=== PATIENT | female | born 1950 | race Caucasian/White ===

== ENCOUNTER → 2017-12-25 | Outpatient (CLI) | payer MEDICARE ==
[~2017-12-25] MED LIST: CIPR-225 PO; HYDR-3812 PO; HYDR-3875 PO; IBUP-2055 PO; INSU100I10 SQ; LISI-552 PO; METF750T2 PO; NITR-65 PO; ONDA8TAB9 SL; SIMV20TA3 PO; TAMS0.4C98 PO
--- NOTE | 2017-12-25 15:35 | Diagnostic Imaging Report ---
INDICATION: Nephrolithiasis EXAM: KUB 3:43 PM FINDINGS: The gallbladder is surgically absent. The bowel gas pattern is normal. There are no radiopaque calculi seen. IMPRESSION: No calculi seen in the kidney or ureter distribution. Dictated by: Dictated on workstation # [id number]
== END ==
LOC: RAD 15:17
PROVIDERS: ATTEND Urology
DX: Z04.9 Encounter for examination and observation for unspecified reason (principal); Z90.49 Acquired absence of other specified parts of digestive tract
CPT/HCPCS: 74018

== ENCOUNTER 2022-03-25 05:27 | Outpatient (CLI) | payer MEDICARE ==
[~2022-03-25] VITALS: Ht 154.9 cm; Wt 61.8 kg
[~2022-03-25 05:27] MED LIST changes: +ACHD5005 PO; -HYDR-3812 PO; -IBUP-2055 PO; +IBUP-2473 PO; -LISI-552 PO; +LISI20TA26 PO; -METF750T2 PO; +METF750T45 PO; +SIMV20TA26 PO; -SIMV20TA3 PO; -TAMS0.4C98 PO; +TMSL.4C PO
[2022-03-28] MEDS ORDERED: estrogen cream (09:53)
[2022-03-28] MEDS ORDERED: DAPA1TAB5 PO (09:53)
[2022-03-28] MEDS ORDERED: [UNRECOGNIZED DRUG - OTHER] (09:53)
[2022-03-28] MEDS ORDERED: INSU100I34 SQ (09:53)
[2022-03-28] MEDS ORDERED: ASPI-999 PO (09:53)
[2022-03-28] MEDS ORDERED: SEMA0.25 SQ (09:53)
[2022-03-28] MEDS ORDERED: OMEP40CA6 PO (09:53)
== END 2022-03-28 10:31 | disposition home or self-care (01) ==
LOC: PREOP 05:27
PROVIDERS: ATTEND Obstetrics & Gynecology
DX: Z01.818 Encounter for other preprocedural examination (principal)

== ENCOUNTER 2022-04-21 05:31 | Outpatient (CLI) | payer MEDICARE ==
[~2022-04-21] VITALS: Ht 155 cm; Wt 61.4 kg
[~2022-04-21 05:31] MED LIST changes: +ASPI-999 PO; +DAPA1TAB5 PO; +INSU100I34 SQ; +OMEP40CA6 PO; +SEMA0.25 SQ; +[UNRECOGNIZED DRUG - OTHER]; +estrogen cream
== END 2022-04-21 13:52 | disposition home or self-care (01) ==
LOC: PREOP 05:31
PROVIDERS: ATTEND Obstetrics & Gynecology
DX: Z01.818 Encounter for other preprocedural examination (principal)

== ENCOUNTER 2022-04-29 06:46 | Day surgery (SDC) | payer MEDICARE ==
[~2022-04-29] VITALS: Ht 155 cm; Wt 61.4 kg
[2022-04-29] VITALS (10 sets, daily range): BP systolic 102–174; BP diastolic 70–97
[2022-04-29] MEDS ORDERED: ESTROGENS CONJ. CREAM 30 GM (PREMARIN) TUBE ONE (07:22)
[2022-04-29] MEDS ORDERED: ceFAZolin INJECTION 1,000 MG VIAL IV ONE (07:30)
[2022-04-29] MEDS ORDERED: LACTATED RINGERS 1,000 ML IV PRN (07:30)
[2022-04-29] MEDS ORDERED: ESTROGENS CONJ INJECTION 25 MG in WATER (STERILE) FOR INJECTION 5 ML IV ONE (07:45)
[2022-04-29] MEDS ORDERED: ONDANSETRON 4 MG/2 ML (SDV) Z0FRAN IVP PRN (07:45)
[2022-04-29] MEDS ORDERED: oxyCODONE/APAP 5/325MG (PERCOCET 5) TABLET PO PRN (07:45)
[2022-04-29] MEDS ORDERED: BENZOCAINE/MENTHOL (DERMOPLAST) 56 ML CAN TP PRN (07:45)
[2022-04-29] MEDS ORDERED: fentaNYL INJ 100 MCG/2 ML AMP IVP PRN (07:45)
--- NOTE | 2022-04-29 07:45 | Progress Note-Post Operative ---
Post-Operative Progess Note Surgeon (s)/Assistant Front Desk Manager (s) Surgeon AMBER FISH MD Assistant Front Desk Manager: Jacqueline Pre-Operative Diagnosis Vaginal prolapseAnd stress urinary continence Post-Operative Diagnosis Same Procedure & Operative Findings Date of Procedure 04/29/22 Procedure Performed/Findings Anterior and posterior vaginal repairs with enterocele repair as well as sacrospinous ligament suspension Dr. Price performed pubovaginal sling and cystoscopy Anesthesia Type General Estimated Blood Loss Estimated blood loss (mL): minimal Specimens/Packing Specimens Removed N/A Packing: AMBER Cuevas MD Apr 29, 2022 07:45
--- NOTE | 2022-04-29 07:45 | Progress Note-Pre Operative ---
Pre-Operative Progress Note Date of Available H&P: Apr 29, 2022 Date H&P Reviewed: Apr 29, 2022 Time H&P Reviewed: 07:44 History & Physical: H&P Reviewed, No changes noted Pre-Operative Diagnosis: Vaginal prolapseAnd stress urinary continence AMBER FISH MD Apr 29, 2022 07:45
[2022-04-29] MEDS ORDERED: DOCU-143 PO (07:50)
[2022-04-29] MEDS ORDERED: OXYC1TAB87 PO (07:50)
[2022-04-29] MEDS ORDERED: IBUP-1773 PO (07:50)
--- NOTE | 2022-04-29 07:52 | Discharge Inst-Surgical ---
Discharge Inst-Surgical Depart Medication/Instructions New, Converted or Re-Newed RX: Transmitted to Pharmacy Consults/Follow Up Patient Instructions: As directed Orders & Referrals Follow Up Appt: Call to make follow up appt. for patient in 4 weeks. Activity: Rest for 24 hours, than as tolerated. Diet: As tolerated shower or tub bathe as desired. No driving for 24 hours, no alcoholic beverages for 24 hours, and nothing per vagina (no tampons, douching, or intercourse) for 4 weeks. Patient to return to the clinic as soon as possible for: Temperature greater than 101F, Severe Pain, Foul discharge from incision or vagina, Excessive Bleeding (more than a period). Activity Activity as Tolerated: No Diet Discharge Diet: No Restrictions AMBER FISH MD Apr 29, 2022 07:52
[2022-04-29] MEDS ORDERED: PATIENT MAY USE OWN MEDS, ALL MC SCH (08:00)
[2022-04-29 08:07] LABS: BASOPHILS # (AUTO) 0.1 10^3/uL (0.0-0.1); BASOPHILS % (AUTO) 1 % (0-10); EOSINOPHILS # (AUTO) 0.2 10^3/uL (0.0-0.3); EOSINOPHILS % (AUTO) 3 % (0-10); HEMATOCRIT 40 % (35-52); HEMOGLOBIN 13.3 g/dL (11.5-16.0); LYMPHOCYTES # (AUTO) 2.9 10^3/uL (1.0-4.0); LYMPHOCYTES % (AUTO) 31 % (12-44); MEAN CORPUSCULAR HEMOGLOBIN 30 pg (25-34); MEAN CORPUSCULAR HGB CONC 33 g/dL (32-36); MEAN CORPUSCULAR VOLUME 91 fL (80-99); MONOCYTES # (AUTO) 0.7 10^3/uL (0.0-1.0); MONOCYTES % (AUTO) 7 % (0-12); NEUTROPHILS # (AUTO) 5.5 10^3/uL (1.8-7.8); NEUTROPHILS % (AUTO) 58 % (42-75); PLATELET COUNT 259 10^3/uL (130-400); WHITE BLOOD COUNT 9.5 10^3/uL (4.3-11.0)
[2022-04-29] MEDS ORDERED: ONDANSETRON 4 MG/2 ML (SDV) Z0FRAN ONE ×2 (08:35→10:43)
[2022-04-29] MEDS ORDERED: fentaNYL INJ 100 MCG/2 ML AMP ONE (08:35)
[2022-04-29] MEDS ORDERED: LIDOCAINE PF 2% 5 ML (XYLOCAINE) VIAL ONE (08:35)
[2022-04-29] MEDS ORDERED: proPOfol 200 MG/20 ML (DIPRIVAN) VIAL IV ONE (08:35)
--- NOTE | 2022-04-29 09:09 | Progress Note-Pre Operative ---
Pre-Operative Progress Note Date of Available H&P: Apr 29, 2022 Date H&P Reviewed: Apr 29, 2022 Time H&P Reviewed: 09:08 History & Physical: H&P Reviewed, No changes noted Changes from last HP NONE Pre-Operative Diagnosis: SILVIA YOUNG MD Apr 29, 2022 09:09
--- NOTE | 2022-04-29 09:10 | Progress Note-Post Operative ---
Post-Operative Progess Note Surgeon (s)/Creative Producer (s) Surgeon SILVIA LOZA MD Creative Producer: MD ABE Pre-Operative Diagnosis LANA Post-Operative Diagnosis SAME Procedure & Operative Findings Date of Procedure 04/29/22 Procedure Performed/Findings PVS AND CYSTO Anesthesia Type GENERAL Estimated Blood Loss Estimated blood loss (mL): NEGLIGIBLE Specimens/Packing Specimens Removed NONE PackinGM ESTRACE VAG PACK SILVIA LOZA MD Apr 29, 2022 09:10
[2022-04-29] MEDS ORDERED: SEVOFLURANE (ULTANE) 15 ML INHAL SOLN ONE (10:18)
--- NOTE | 2022-04-29 10:31 | Anesthesia-General Post-Op ---
General Patient Condition Mental Status/LOC: Same as Preop Cardiovascular: Satisfactory Nausea/Vomiting: Absent Respiratory: Satisfactory Pain: Controlled Complications: Absent Post Op Complications Complications None Follow Up Care/Instructions Patient Instructions None needed. Anesthesia/Patient Condition Patient Condition Patient is doing well, no complaints, stable vital signs, no apparent adverse anesthesia problems. No complications reported per nursing. MARGARETTE VERDUZCO CRNA Apr 29, 2022 10:31
[2022-04-29] MEDS ORDERED: ESTROGENS CONJ INJECTION 5 ML ONE (10:39)
[2022-04-29] MEDS ORDERED: KETOROLAC 30 MG/ML VIAL ONE (10:39)
[2022-04-29] MEDS ORDERED: WATER (STERILE) FOR INJECTION 10 ML ONE (10:40)
[2022-04-29] MEDS: KETOROLAC 15 MG/ML VIAL IV SCH ×2 (10:52→17:53)
[2022-04-29] MEDS: D5 LR IV SOLUTION 1,000 ML IV SCH ×3 (11:44→19:04)
[2022-04-29] MEDS ORDERED: KETOROLAC 15 MG/ML VIAL IV SCH (17:00)
--- NOTE | 2022-04-29 20:35 | OPERATIVE REPORT ---
DATE OF SERVICE: 04/29/2022 PREOPERATIVE DIAGNOSIS: On my part, stress urinary incontinence. POSTOPERATIVE DIAGNOSIS: On my part, stress urinary incontinence. OPERATION PERFORMED: Pubovaginal sling and cystoscopy. SURGEON: Silvia Loza MD INTERNAL CONTROL ANALYST: Fausto Benedict MD ANESTHESIA: General. COMPLICATIONS: None. DESCRIPTION OF PROCEDURE: After Dr. Benedict performed the first part of his surgery, I inserted a Zaragoza catheter draining clear fluid. I passed the device using the described technique on both sides. The sling was sitting nicely under the mid urethra with no twisting, tension and passage of a curved hemostat easily between it and the underlying tissue. I removed the Zaragoza catheter and performed cystoscopy to confirm the integrity of the bladder, ureteric orifices and urethra and presence of the sling under the mid urethra. I left the bladder half full to perform a manual Valsalva maneuver after removing the cystoscope and it was negative. Reinserted the Zaragoza catheter draining clear fluid. Estimated blood loss on my part negligible and Dr. Benedict proceeded with rest of his surgery that he will dictate. Job ID: [id number] DocumentID: [id number] Dictated Date: 04/29/2022 12:08:55 Ediphone Operator Date: 04/29/2022 20:34:49 Dictated By: SILVIA LOZA MD
[2022-04-30 00:47] VITALS: BP 150/71
[2022-04-30] MEDS: KETOROLAC 15 MG/ML VIAL IV SCH ×2 (00:47→07:41)
--- NOTE | 2022-04-30 01:20 | OPERATIVE REPORT ---
DATE OF SERVICE: 04/29/2022 PREOPERATIVE DIAGNOSIS: Vaginal prolapse with stress urinary incontinence. POSTOPERATIVE DIAGNOSIS: Vaginal prolapse with stress urinary incontinence. OPERATIVE PROCEDURE: Anterior and posterior vaginal repairs with enterocele repair as well as sacrospinous ligament suspension with Dr. Awad doing a pubovaginal sling and cystoscopy. OPERATIVE DESCRIPTION: With the patient in the supine position under satisfactory general anesthesia, she was repositioned in dorsal lithotomy position in the Asim stirrups and prepped and draped in the usual fashion for vaginal surgery. Zaragoza catheter was placed in the urinary bladder. Weighted speculum placed in the posterior fornix of vagina. The anterior vaginal wall, which was comprised of a very large cystocele was grasped with two Surjit clamps. The vaginal wall was opened in the midline and then the bladder was carefully dissected off the muscularis of the vagina back to pubic brim bilaterally. The endopelvic fascia was plicated with 2-0 Vicryl sutures in two layers, elevating the bladder and lengthening the urethra and restoring the bladder to its normal position in the pelvis. At this point, Dr. Awad assumed care of the patient. I remained to assist. Dr. Awad performed a pubovaginal sling and cystoscopy, which reported normal findings. Upon completion of Dr. Awad's portion of the procedure, he left the Zaragoza catheter to dependent drainage. I resumed care of the patient and resected the redundant anterior vaginal wall muscularis mucosa. The vaginal wall was then closed with a running locked suture of 3-0 Vicryl Rapide to good hemostasis and good reapproximation. Posterior repair was now affected by placing Surjit clamps on the perineum and hymenal ring at 5 and 7 o'clock position, an inverted triangle skin was removed from the perineal body and upright triangle from the posterior vaginal floor. The rectovaginal space was entered sharply and dissected bluntly to the apex of the vagina. It was explored for an enterocele and there was one noted. A digital dissection was then carried to the right rectal pillar to the right ischial spine and then palpating the sacrospinous ligament. A suture of 2-0 Ethibond was placed using a Capio device approximately a centimeter medial to the ischial spine and second suture of the same was placed a cm medial to that. Both arms of each suture was brought out through the apex of the vagina tagged and held long for tying later. The enterocele was now recently reduced and plicated with 2-0 Vicryl pursestring suture. That was done in 2 steps as well. The rectovaginal space was then obliterated with 2-0 Vicryl sutures and then the perineal body was restored with 2-0 Vicryl sutures as well. The redundant posterior vaginal wall muscularis mucosa was removed sharply. The vaginal wall was closed with a running locked suture of 3-0 Vicryl Rapide, that closure was continued past the hymenal ring down the perineal body then back up subcutaneous to the hymenal ring where the suture was tied. At this point both of the sacrospinous ligament suspension sutures were tied as each was tied. The apex of the vagina was brought well back up into the pelvis. Those sutures were cut short. The vaginal incisions were examined for hemostasis that being complete and digital rectal exam confirming no sutures into or through the rectal mucosa. The vagina was then filled with Estrace vaginal cream and a pack of Kerlix gauze was placed. The Zaragoza catheter was left to dependent drainage. Sponge and needle counts were correct on completion of the procedure. Blood loss was minimal. The patient tolerated the procedure well and was uneventfully awakened from her general anesthesia and transferred to recovery room in stable condition. Job ID: [id number] DocumentID: [id number] Dictated Date: 04/29/2022 17:45:18 Selling Underwriter Date: 04/30/2022 01:19:59 Dictated By: AMBER FISH MD
[2022-04-30] MEDS: D5 LR IV SOLUTION 1,000 ML IV SCH (02:56)
[2022-04-30 03:00] VITALS: BP 149/68
--- NOTE | 2022-04-30 07:59 | Progress Note ---
Standard Progress Note Progress Notes/Assess & Plan Date Seen by a Provider: Apr 30, 2022 Time Seen by a Provider: 07:58 Progress/Assessment & Plan This patient is without complaint. She is tolerating oral intake she is not ambulatory just yet her Zaragoza catheter and packing have been removed. Bladder trial is ongoing. Patient denies nauseaAnd has good pain control. Vital Signs Date Time Temp Pulse Resp B/P (MAP) Pulse Ox O2 Delivery O2 Flow Rate FiO2 04/30/22 03:00 36.9 88 16 149/68 (95) 97 Room Air 04/30/22 00:47 37.2 84 16 150/71 (97) 96 Room Air 04/29/22 20:00 36.8 90 16 148/70 (96) 96 Room Air 04/29/22 16:05 36.6 87 14 144/74 (97) 99 Room Air 04/29/22 11:35 Room Air 04/29/22 11:35 36.6 75 14 162/72 (102) 97 Room Air 04/29/22 11:18 Room Air 04/29/22 11:10 36.2 18 169/93 (118) 96 Room Air 04/29/22 11:00 Room Air 04/29/22 11:00 16 174/97 (122) 94 Room Air 04/29/22 10:50 20 161/97 (118) 99 Room Air 04/29/22 10:45 OxyMask 2.00 04/29/22 10:40 20 168/78 (108) 98 OxyMask 2.00 04/29/22 10:30 18 117/72 (87) 97 OxyMask 4.00 04/29/22 10:30 OxyMask 4.00 04/29/22 10:23 36.6 18 102/70 (81) 95 OxyMask 6.00 04/29/22 10:23 OxyMask 6.00 04/29/22 08:00 36.2 81 20 156/80 (105) 98 Room Air I & O 04/30/22 06:59 Intake Total 4435 ml Output Total 1550 ml Balance 2885 ml Vital signs are stable. Patient is afebrile. The abdomen is benign Extremities show no clubbing or cyanosis. There is no Homans' sign. Pelvic exam is deferred Assessment and plan Postoperative day #1 status post AV repairs with pubovaginal sling and cystoscopy. Patient is doing well will have routine convalescent care. Final Diagnosis Vaginal prolapse and stress incontinence AMBER FISH MD Apr 30, 2022 07:59
[2022-04-30] MEDS ORDERED: DOCUSATE SODIUM 100 MG (COLACE) CAP PO SCH (09:00)
--- NOTE | 2022-04-30 10:15 | Progress Note - Urology ---
Progress Note-Urology Progress Notes/Assess & Plan Progress/Assessment & Plan DOING AND FEELING WELL. DID NOT VOID YET. OBSERVE Final Diagnosis LANA SILVIA LOZA MD Apr 30, 2022 10:15
[2022-04-30] MEDS ORDERED: IBUPROFEN 600 MG (MOTRIN) TAB PO SCH (11:00)
[2022-04-30 11:25] VITALS: BP 175/77
[2022-04-30 12:21] VITALS: BP 187/71
[2022-04-30] MEDS ORDERED: CIPR250S3 PO (14:55)
[2022-04-30 17:15] VITALS: BP 187/71
== END 2022-04-30 17:15 | disposition home or self-care (01) ==
LOC: SDC 06:46 → WS 11:22 → SDC 04-30 17:15
PROVIDERS: ATTEND Obstetrics & Gynecology
DX: N81.4 Uterovaginal prolapse, unspecified (principal); N39.3 Stress incontinence (female) (male); K21.00 Gastro-esophageal reflux disease with esophagitis, without bleeding
CPT/HCPCS: 57265; 57288; 82947; 85025; 87081; C1771; 36415